=== PATIENT | male | born 2000 | race Two or more races ===

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

== ENCOUNTER 2022-01-15 13:06 | Emergency (ER) | payer OTHER ==
[~2022-01-15] VITALS: Ht 190.5 cm; Wt 72.1 kg
[~2022-01-15 13:06] MED LIST: ANUSOL-HC25 MG RECTAL
== END 2022-01-15 21:12 | disposition home or self-care (01) ==
LOC: ER 13:06 → EMR PED 13:09 → ER 13:09 → EMR PED 21:12
DX: R51.9 Headache, unspecified (principal)